=== PATIENT | male | born 1975 | race Caucasian/White ===

== ENCOUNTER 2025-07-28 13:16 | Emergency (ER) | payer OTHER, SELFPAY ==
[2025-07-28 13:17] VITALS: BP 136/82; PULSE 82; RESP 16; TEMP 36.8; O2SAT 98; BMI 32.8
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
== END 2025-07-28 15:31 | disposition home or self-care (01) ==
PROVIDERS: Emergency Provider Emergency Medicine; Visit Provider Emergency Medicine
DX: S09.90XA Unspecified injury of head, initial encounter (principal); S02.5XXA Fracture of tooth (traumatic), initial encounter for closed fracture; W22.09XA Striking against other stationary object, initial encounter
CPT/HCPCS: 99282